=== PATIENT | male | born 1975 | race Two or more races ===

== ENCOUNTER 2020-02-20 18:00 | Emergency (ER) | payer OTHER ==
[2020-02-20 18:18] VITALS: BP 136/79; PULSE 58; TEMP 98.3; BMI 32.0
[2020-02-20] MEDS ORDERED: KETOROLAC TROMETHAMINE 60 MG/2 ML VIAL IM ONE (19:19)
[2020-02-20] MEDS ORDERED: KETOROLAC TROMETHAMINE 60 MG/2 ML VIAL ONE (19:23)
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
== END 2020-02-20 20:25 | disposition home or self-care (01) ==
LOC: FER 18:00 → SUPCPDRO 18:00 → FER 20:25
PROC: 3E023GC Introduction of Other Therapeutic Substance into Muscle, Percutaneous Approach (ICD-10-PCS; principal; 2020-02-20)
DX: S13.4XXA Sprain of ligaments of cervical spine, initial encounter (principal); S39.012A Strain of muscle, fascia and tendon of lower back, initial encounter; V49.50XA Passenger injured in collision with unspecified motor vehicles in traffic accident, initial encounter
CPT/HCPCS: 72050-TC-FY; 72070-TC-FY; 72100-TC-FY; 99284-25